=== PATIENT | female | born 1985 ===

== ENCOUNTER 2020-11-04 10:45 | Emergency (ER) | payer MEDICAID ==
--- NOTE | 2020-11-04 11:06 | EDM.PDOC ---
ED HPI GENERAL MEDICAL PROBLEM - General Chief Complaint: General Stated Complaint: FB Time Seen by Provider: 11/04/20 10:55 Source of Information: Reports: Patient History Limitations: Reports: No Limitations - History of Present Illness INITIAL COMMENTS - FREE TEXT/NARRATIVE: Vicki is a 35 year old female who presents to ER with concerns of a tampon that is stuck up in her vagina. 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 Did change her tampon but admits she had difficulty doing so. This am, was unable to find the string to change it. Had checking and couldn't either and is concerned is stuck up high. Has mild pelvic pressure as admits that since she had removal of her IUD, her cycles have been very heavy. Does have sensation like tampon is still in the vagina. No other concerns. Duration: Hour(s): Location: Reports: Other (pelvis) Associated Symptoms: Reports: No Other Symptoms - Related Data Allergies Allergy/AdvReac Type Severity Reaction Status Date / Time No Known Allergies Allergy Verified 11/04/20 10:54 Home Meds: Home Meds LORazepam 0.5 mg PO BID PRN 02/05/16 [History] Sertraline [Zoloft] 50 mg PO BID 02/05/16 [History] Past Medical History Psychiatric History: Reports: Anxiety, Depression - Past Surgical History HEENT Surgical History: Reports: Other (See Below) Female Surgical History: Reports: Section Musculoskeletal Surgical History: Reports: Arthroscopic Knee Social & Family History - Tobacco Use Tobacco Use Status *Q: Unknown Ever Used Tobacco ED ROS GENERAL - Review of Systems Review Of Systems: See Below Constitutional: Reports: Weakness, Fatigue. Denies: Fever, Chills, Malaise HEENT: Reports: No Symptoms Respiratory: Reports: No Symptoms Cardiovascular: Reports: No Symptoms Endocrine: Reports: No Symptoms GI/Abdominal: Denies: Abdominal Pain, Vomiting : Reports: Other (vaginal pressure; history of heavy menstrual cycles) Musculoskeletal: Reports: No Symptoms Skin: Reports: No Symptoms ED EXAM, GENERAL - Physical Exam Exam: See Below Exam Limited By: No Limitations General Appearance: Alert, WD/WN, No Apparent Distress GI/Abdominal: Normal Bowel Sounds, Soft, Non-Tender (Female) Exam: Normal External Exam, Normal Speculum Exam, Normal Bimanual Exam, Vaginal Bleeding, Other (unable to find any foreign object in vagina with pelvic exam or with speculum exam. Moderate amount of blood noted. ) Course - Re-Assessments/Exams Free Text/Narrative Re-Assessment/Exam: 11/04/20 Discussed findings with patient. Patient questions now if possibly never even got the tampon in last night, thought the extra bleeding this am was just alix her cycles were heavy and she needed to change the tampon. Advised to notify us if has persisting concerns or develops more pressure. Departure - Departure Time of Disposition: 11:04 Disposition: Home, Self-Care 01 Condition: Good Clinical Impression: Normal pelvic exam - Discharge Information *PRESCRIPTION DRUG MONITORING PROGRAM REVIEWED*: No *COPY OF PRESCRIPTION DRUG MONITORING REPORT IN PATIENT KIRSTY: No Instructions: Pelvic Exam Forms: ED Department Discharge Additional Instructions: 1. Usual menstrual cycle cares 2. Return if any concerns, continue to have pelvic pressure or develop fevers
[2020-11-04 11:39] VITALS: BP 122/86; PULSE 88
== END 2020-11-04 11:15 | disposition home or self-care (01) ==
LOC: CC.ED 10:45
DX: Z00.00 Encounter for general adult medical examination without abnormal findings (principal)
CPT/HCPCS: 99283